=== PATIENT | male | born 1945 | race Hispanic/Latino ===

== ENCOUNTER 2018-07-31 08:33 | Outpatient (CLI) | payer MEDICARE ==
[2018-07-31 10:26] LABS: Hematocrit 41.3 % (35.5-45.6); Hemoglobin 14.5 gm/dl (11.8-15.2); Mean Corpuscular HGB Conc 35 % (32-34); Mean Corpuscular Volume 94 fl (84-94); Platelet Count 159 K/mm3 (140-440); Red Blood Count 4.38 M/mm3 (3.65-5.03); Red Cell Distribution Width 12.8 % (13.2-15.2)
[2018-07-31 10:37] LABS: Bilirubin,Urine NEG (Negative); Blood,Urine NEG (Negative); Color,Urine Yellow (Yellow); Hyaline Casts,Urine 1 /LPF; Mucus,Urine FEW /HPF; Protein,Urine <15 mg/dL mg/dL (Negative); RBC,Urine < 1.0 /HPF (0.0-6.0); Urobilinogen,Urine < 2.0 mg/dL (<2.0); WBC,Urine < 1.0 /HPF (0.0-6.0)
[2018-07-31 11:02] LABS: Alanine Aminotransferase 20 units/L (7-56); Albumin 4.3 g/dL (3.9-5); BUN/Creatinine Ratio 17; Blood Urea Nitrogen 17 mg/dL (9-20); Calcium 9.2 mg/dL (8.4-10.2); Chol/HDL Ratio 3.64 %; HDL Cholesterol 48 mg/dL (40-59); Hemolysis Index 4; LDL Cholesterol,Direct 121 mg/dL (50-130)
[2018-08-04 20:53] LABS: Vitamin D, 25-OH, D2 <4 ng/mL
== END 2018-07-31 08:34 | disposition home or self-care (01) ==
LOC: LAB 08:33
PROVIDERS: ATTEND Internal Medicine
DX: Z13.21 Encounter for screening for nutritional disorder (principal); Z13.29 Encounter for screening for other suspected endocrine disorder; R73.03 Prediabetes; E78.5 Hyperlipidemia, unspecified
CPT/HCPCS: 36415; 80053; 80061; 81001; 82306; 82607; 83036; 84443; 85027

== ENCOUNTER 2018-12-15 08:49 | Outpatient (CLI) | payer MEDICARE ==
[2018-12-15 11:22] LABS: Chol/HDL Ratio 4.27 %
== END 2018-12-15 08:50 | disposition home or self-care (01) ==
LOC: LAB 08:49
PROVIDERS: ATTEND Internal Medicine
DX: E78.5 Hyperlipidemia, unspecified (principal)
CPT/HCPCS: 36415; 80061

== ENCOUNTER 2019-04-29 12:14 | Outpatient (CLI) | payer MEDICARE ==
[2019-04-29 12:46] LABS: Chol/HDL Ratio 4.54 %
== END 2019-04-29 12:15 | disposition home or self-care (01) ==
LOC: LAB 12:14
PROVIDERS: ATTEND Internal Medicine
DX: E78.5 Hyperlipidemia, unspecified (principal); R73.03 Prediabetes
CPT/HCPCS: 36415; 80061; 83036